=== PATIENT | male | born 1955 | race Caucasian/White ===

== ENCOUNTER 2020-01-12 10:20 | Outpatient (CLI) | payer MEDICARE, MEDICAID, SELFPAY ==
--- NOTE | ~2020-01-12 | XR_ITS ---
EXAMINATION: XR knee RT min 4V DATE: 01/12/2020 10:59 INDICATION: 8 months of chronic right knee pain and limited range of motion TECHNIQUE: Weight bearing anteroposterior and Allen, sunrise, and flexed lateral views of the rig ht knee were obtained COMPARISON: None. FINDINGS: Mild genu varus resulting from severe joint space narrowing in the medial compartment. Small marginal osteophytes in the lateral and patellofemoral compartments. No fracture. No joint effusion. There is an approximately 3 x 2 x 1.5 cm sclerotic lesion in the central aspect of the metaphyseal region of the proximal right tibia with ring and arc-like calcified chondroid matrix consistent with a benign e nchondroma. IMPRESSION: 1. Tricompartmental osteoarthritis at the right knee, severe in the medial compartment. 2. Incidental likely benign enchondroma in the proximal right tibia. Reviewed, dictated and finalized at location B. IMPRESSION: 1. Tricompartmental osteoarthritis at the right knee, severe in the medial comp artment. 2. Incidental likely benign enchondroma in the proximal right tibia.
== END 2020-01-12 10:21 | disposition home or self-care (01) ==
PROVIDERS: PCP Nurse Practitioner Family; Visit Provider Nurse Practitioner Family
DX: M25.561 Pain in right knee (principal)
CPT/HCPCS: 73564

== ENCOUNTER 2022-11-03 13:33 | Outpatient (RCR) | payer MEDICARE, MEDICAID, SELFPAY ==
--- NOTE | 2022-11-03 14:55 | PTOPEVAL1 ---
Assessment and note entered by Rell Sheffield Evaluation Information Assessment Status Evaluation Diagnosis s/p R TKA Onset 10/15/22 Subjective Information Pt. reports that he underwent a right TKA on . He states that he has been exercising at home . 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 He states that he has numbness on the outside of the knee and pain on the inside. He states that he has returned to driving and is doing some light yardwork. He reports that his goal for therapy is to be able to walk normally. Reported Pain Level Pain Score 3: Self Report Assessment PT Clinical Summary Pt. is a 67 year old male who enters the clinic post right TKA. He presents with impaired ROM, edema, impaired strength, impaired gait and pain. continued skilled PT is indicated in order to improve these areas to allow the pt. to be able to complete all IADL's without limitation. Plan of Care Interventions Intermittent Compression,Manual Therapy,Patient/ Caregiver Educati,Therapeutic Activities, Therapeutic Exercise PT Services Indicated Yes Treatment Frequency and 3x/week x 12 visits Duration These treatments will address the objective and functional deficits as defined above. The patient will be advanced safely and appropriately in order for the patient to progress towards his/her prior level of function. Additional exercises will be introduced and as well as a comprehensive home exercise program upon discharge, if needed, ?to ensure carryover of functional gains achieved in the clinic. This treatment plan has been reviewed and agreement upon by the patient.
--- NOTE | 2022-11-03 14:55 | OPREHPOC ---
Outpatient Therapy Plan of Care This is a Multidisciplinary Plan of Care that may contain components documented by all disciplines (PT, OT, and ST.) PT Problem 1 PT Problem #1 Knowledge Deficit PT Goal 1 Goal Pt. will be independent with a HEP addressing mobility holiness and strength Target Visit 2 PT Problem 2 PT Problem #2 Impaired Strength PT Goal 1 Goal Pt. will achieve 5/5 mm. strength at the right l.e . Target Visit 12 PT Problem 3 PT Problem #3 Impaired Range of Motion PT Goal 1 Goal Pt. will achieve 0-120 degrees right knee AROM Target Visit 12 PT Problem 4 PT Problem #4 Impaired Gait PT Goal 1 Goal Pt. will ambulate with equal right and left stance time and return to all work related duties. Target Visit 12
--- NOTE | 2022-11-25 14:35 | PTOPPROGNS ---
Assessment and note entered by Samantha Paulino DPT Evaluation Information Assessment Status Progress Diagnosis s/p R TKA Onset 10/15/22 Subjective Information Patient reports his knee is doing well. He reports he gets stiff quickly when he sits and that makes it difficulty to drive for prolonged periods of time. He reports when he is moving he feels good but going down stairs is painful Assessment PT Clinical Summary Patient has been seen for 10 visits of skilled PT with good progress towards goals. Patient demonstrates improve R LE strength and R knee AROM 2-120 deg. Patient continues to report difficulty with stairs but reports he has been able to stand and walk for prolonged periods of time. He would benefit from continued skilled PT to address remaining impairments and return to PLOF. Plan of Care Interventions Intermittent Compression,Manual Therapy,Patient/ Caregiver Educati,Therapeutic Activities, Therapeutic Exercise PT Services Indicated Yes Treatment Frequency and continue with current POC Duration These treatments will address the objective and functional deficits as defined above. The patient will be advanced safely and appropriately in order for the patient to progress towards his/her prior level of function. Additional exercises will be introduced and as well as a comprehensive home exercise program upon discharge, if needed, ?to ensure carryover of functional gains achieved in the clinic. This treatment plan has been reviewed and agreement upon by the patient.
== END 2022-12-01 20:00 | disposition home or self-care (01) ==
LOC: CHSPT 13:33
DX: Z47.1 Aftercare following joint replacement surgery (principal); Z96.651 Presence of right artificial knee joint
CPT/HCPCS: 97016; 97110; 97150; 97161; 97530; 97750

== ENCOUNTER 2023-02-23 15:35 | Outpatient (RCR) | payer MEDICARE, MEDICAID, SELFPAY ==
--- NOTE | 2023-02-23 16:34 | PTOPEVAL1 ---
Assessment and note entered by Rell Sheffield Evaluation Information Assessment Status Evaluation Diagnosis s/p left TKA Onset 01/02/23 Subjective Information Pt. reports that he underwent surgery on 01/02/23. He reports he need to start therapy earlier, but had family issues. He states that he has no pain at rest. He reports that he will get pain with activity. He reports that he is not using a AD and has returned to driving. He reports having some stiffness, but is very pleased with his progress. HE reports that his goal for therapy is to return to walking normal and improve the knee mobility. Reported Pain Level Pain Score 0: Self Report Assessment PT Clinical Summary Pt. is a 67 year old male 6 weeks post left TKA. He presents with slight gait impairment, impaired ROM and mild weakness at the left l.e. Continued skilled PT is indicated in order to improve these areas to allow the pt. to be able to complete all IADL's with improved efficeincy and comfort. Plan of Care Interventions Electrical Stimulation,Gait Training,Hot Pack/Cold Pack,Intermittent Compression,Manual Therapy, Neuro Re-education,Therapeutic Activities, Therapeutic Exercise PT Services Indicated Yes Treatment Frequency and 2x/week x 6 visits Duration These treatments will address the objective and functional deficits as defined above. The patient will be advanced safely and appropriately in order for the patient to progress towards his/her prior level of function. Additional exercises will be introduced and as well as a comprehensive home exercise program upon discharge, if needed, ?to ensure carryover of functional gains achieved in the clinic. This treatment plan has been reviewed and agreement upon by the patient.
--- NOTE | 2023-02-23 16:36 | OPREHPOC ---
Outpatient Therapy Plan of Care This is a Multidisciplinary Plan of Care that may contain components documented by all disciplines (PT, OT, and ST.) PT Problem 1 PT Problem #1 Knowledge Deficit PT Goal 1 Goal Independent with a HEP addressing strength and mobility yazdanism. Target Visit 2 PT Problem 2 PT Problem #2 Impaired Gait PT Goal 1 Goal Pt. will navigate stairs with reciprocal pattern with ascending and descending Target Visit 6 PT Goal 2 Goal Pt. will ambulate with equal right and left stance time Target Visit 6 PT Problem 3 PT Problem #3 Impaired Strength PT Goal 1 Goal Pt. will demonstrate 5/5 left knee extension strength Target Visit 6 PT Problem 4 PT Problem #4 Impaired Range of Motion PT Goal 1 Goal Pt. will achieve 0-120 degrees left knee active ROM. Target Visit 6
--- NOTE | 2023-03-10 15:05 | OPREHPOC ---
Outpatient Therapy Plan of Care This is a Multidisciplinary Plan of Care that may contain components documented by all disciplines (PT, OT, and ST.) PT Problem 1 PT Problem #1 Knowledge Deficit PT Goal 1 Goal Independent with a HEP addressing strength and mobility protestant. Target Visit 2 Progress Met PT Problem 2 PT Problem #2 Impaired Gait PT Goal 1 Goal Pt. will navigate stairs with reciprocal pattern with ascending and descending Target Visit 6 Progress Met PT Goal 2 Goal Pt. will ambulate with equal right and left stance time Target Visit 6 Progress Met PT Problem 3 PT Problem #3 Impaired Strength PT Goal 1 Goal Pt. will demonstrate 5/5 left knee extension strength Target Visit 6 Progress Met PT Problem 4 PT Problem #4 Impaired Range of Motion PT Goal 1 Goal Pt. will achieve 0-120 degrees left knee active ROM. Target Visit 6 Progress Met
--- NOTE | 2023-03-10 15:05 | PTOPDC ---
Assessment and note entered by Samantha Paulino DPT Evaluation Information Assessment Status Re-evaluation Diagnosis s/p left TKA Onset 01/02/23 Subjective Information Patient reports that both knees are doing well. He reports he has been able to return to all activities at PLOF. The only thing he has not attempted at this time is kneeling Reported Pain Level Pain Score 0: Self Report Pain Score 0: Self Report Assessment PT Clinical Summary Patient was seen for 6 visits of skilled PT with all goals met. He demonstrates 0-120 deg of L knee ROM, 5/5 L knee strength and normal gait mechanics. He has return to all daily activities at PLOF. He is independent with HEP and is appropriate for DC at this time. Plan of Care PT Services Indicated No
== END 2023-03-10 11:40 | disposition home or self-care (01) ==
LOC: CHSPT 15:35
DX: M17.11 Unilateral primary osteoarthritis, right knee (principal)
CPT/HCPCS: 97110; 97112; 97150; 97161; 97530